=== PATIENT | female | born 1990 | race Hispanic/Latino ===

== ENCOUNTER 2017-03-15 22:51 | Emergency (ER) | payer OTHER ==
[~2017-03-15 22:51] MED LIST: METHERGINE0.2 M1 PO; PREDNISONE10 M2 PO; VENTOLIN HFA18 GM INH
--- NOTE | 2017-03-15 23:17 | ED GI/GU/ABDOMINAL COMPLAINT ---
History of Present Illness General Chief Complaint: Abdominal Pain/Flank Pain Stated Complaint: ABD PAIN Source: patient, old records Exam Limitations: no limitations Allergies Coded Allergies: shellfish derived (Severe, ANAPHYLAXIS 07/22/16) Triage Note: PER PT ABD PAIN X 2 DAYS HAD CHILLS ,LMP LAST WEEK ONLY WAS 3 DAYS USUSALLY IT IS A WEEK PAIN STABBING ABOUT EVERY 30 MINUTES. PAIN ALSO TO LOW BACK Triage Nurses Notes Reviewed? yes ? n Is pt currently ? No HPI: This si a 26 yo female with PMH asthmawho comes in with CC abdominal pain. Pt states that she has had the pain in for 3 days. The pain is a stabbing intermittent sensation predominatnly in upper quadrants but radiating to back. Pt also endorses a radiation to her buttocks with an almost numb feeling in her thighs. She has hx of medical in 2016 after which she c/o excessive vaginal bleeding no other previous GI symptoms. She does endorse etoh intake the day before symptoms started. Denies any drugs or exotic food ingestions. Her baseline bowel habits are around 3 times a week but today she had 2 episodes of stool which is unusual for pt. No change in urination. No BRBPR melena or hematuria. Pain has continued to get worse over the past three days. LMP was last week; but it only lasted 3 days instead of usual 5-7 day course. (BRIA JONES,ZAYRA) Vital Signs & Intake/Output Vital Signs & Intake/Output Vital Signs Date Time Temp Pulse Resp B/P B/P Pulse O2 O2 Flow FiO2 Mean Ox Delivery Rate 03/16 0006 Room Air 03/15 2256 98.5 64 20 108/79 96 Room Air ED Intake and Output 03/16 0000 03/15 1200 Intake Total Output Total Balance Patient 70.307 kg Weight Reconcile Medications Albuterol Sulfate (Ventolin Hfa) 18 GM HFA.AER.AD 2 PUF INH Q4-6 PRN PRN ASTHMA Methylergonovine Maleate (Methergine) 0.2 MG TABLET 0.2 MG PO TID PRN BLEEDING Omeprazole 10 MG CAPSULE. 1 CAP PO DAILY gastritis Prednisone 10 MG TABLET 1 TAB PO AD ASTHMA DAY1/DAY2 FOUR TABS DAY3/DAY4 THREE TABS DAY5/DAY6 TWO TABS DAY7 ONE TAB (GENA MCNAIR MD) Past History Travel History Traveled to [place] past 21 day No Medical History Any Pertinent Medical History? 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 No Sexual History Sexually Active Yes Use of Protection Yes Always (ZAYRA FRASER MD) Psychosocial History ETOH Use: occasional use Illicit Drug Use: denies illicit drug use (GENA MCNAIR MD) Review of Systems Review of Systems Constitutional: Denies: chills, fever, weakness, unexplained weight loss. EENTM: Reports: no symptoms. Respiratory: Reports: no symptoms. Cardiovascular: Reports: no symptoms. GI: Reports: see HPI. Genitourinary: Denies: discharge, dysuria, frequency, hematuria, hesitation, nocturia, pain, urgency. Musculoskeletal: Reports: gout. Skin: Reports: no symptoms. (ZAYRA FRASER MD) Review of Systems Neurological/Psychological: Reports: no symptoms. Hematologic/Endocrine: Reports: no symptoms. Immunologic/Allergic: Reports: no symptoms. All Other Systems: Reviewed and Negative (GENA MCNAIR MD) Physical Exam Physical Exam General Appearance: well developed/nourished, no apparent distress, alert, awake Head: atraumatic, normal appearance Eyes: Bilateral: normal appearance, PERRL, EOMI. Ears, Nose, Throat, Mouth: hearing grossly normal Neck: normal inspection, supple, full range of motion Respiratory: normal breath sounds, chest non-tender, no respiratory distress, quiet respiration, lungs clear Cardiovascular: regular rate/rhythm Gastrointestinal: normal bowel sounds, soft, tenderness to palpation in upper quadrants. No rebound or guarding Rectal: deferred Core Measures ACS in differential dx? No Severe Sepsis Present: No Septic Shock Present: No (ZAYRA FRASER MD) Physical Exam Extremities: normal range of motion Neurologic/Psych: no motor/sensory deficits, awake, alert, oriented x 3, normal gait, normal mood/affect Skin: intact, normal color, warm/dry (GENA MCNAIR MD) Progress Differential Diagnosis: biliary colic, ectopic , gastritis, intrauterine , kidney stone, pancreatitis, PUD/GERD Initial ED EKG: none Comments: 11:40 pm- have sent off for blood work and test. Pt given pain control and GI cocktail (BRIA JONES,ZAYRA) Plan of Care: Orders Procedure Date/time Status LIPASE 03/15 2326 Complete HUMAN BETA HCG SCREEN 03/15 2326 Complete CBC WITHOUT DIFFERENTIAL 03/15 2326 Complete BASIC ELECTROLYTES PLUS BUN&CR 03/15 2326 Complete AMYLASE 03/15 2326 Complete Current Medications Sig/Lidia Start time Last Medication Dose Stop Time Status Admin Ondansetron HCl 4 MG ONCE PRN 03/15 2330 AC (Zofran) Laboratory Tests 03/15/172355: Anion Gap 9, Estimated GFR > 60, BUN/Creatinine Ratio 23.3, Amylase 39, Lipase 52, Total Beta HCG NEGATIVE, CBC w Diff NO MAN DIFF REQ, RBC 4.67, MCV 79.8 L, MCH 25.8 L, RDW 17.0 H, MPV 9.0, Gran % 70.6, Lymphocytes % 15.2 L, Monocytes % 8.1, Eosinophils % 5.9 H, Basophils % 0.2, Absolute Granulocytes 6.3, Absolute Lymphocytes 1.4, Absolute Monocytes 0.7 H, Absolute Eosinophils 0.5, Absolute Basophils 0, PUBS MCHC 32.3 L Departure Departure Condition: Stable Referrals: UNKNOWN (PCP/Family) Departure Forms: Customer Survey General Discharge Information (BRIA JONES,ZAYRA) Departure Disposition: HOME OR SELF CARE Clinical Impression Primary Impression: Gastritis Qualifiers: Gastritis type: unspecified gastritis Chronicity: acute Gastritis bleeding: without bleeding Qualified Code: K29.00 - Acute gastritis without bleeding Additional Instructions: AVOID ALCOHOL TAKE MEDS PRESCRIBED RETURN FOR ANY CONCERNS Prescriptions: Current Visit Scripts Omeprazole 1 CAP PO DAILY #30 CAP Resident Co-Sign Statement Statement: ED Attending supervision documentation- [X] I saw and evaluated the patient. I have also reviewed all the pertinent lab results and diagnostic results. I agree with the findings and the plan of care as documented in the Resident's documentation. [X] I have reviewed the ED Record and agree with the Resident's documentation. [] Additions or exceptions (if any) to the Resident's note and plan are summarized below: [I have personally seen and examined this patient. I have read the above note and agree with what has been written. Patient was out drinking on Wednesday night and Wednesday morning woke up with a burning cramping sensation in her epigastric area. The pain has been constant since then. The pain occasionally radiates through to his back. There is slight nausea but no vomiting. There is no diarrhea. She rates the pain at 6 out of 10. There are no aggravating or mitigating factors. The pain is relieved with a GI cocktail. The laboratory data have been discussed with the patient. Questions have been answered. Patient is stable for discharge.] (TABBY JONES,GENA Rehman)
[2017-03-15] MEDS ORDERED: OMEPRAZOLE10 M1 PO (23:43)
[2017-03-16 00:18] LABS: ABSOLUTE BASOPHIL COUNT 0 /CUMM (0.0-0.2); ABSOLUTE EOSINOPHIL COUNT 0.5 /CUMM (0.0-0.7); ABSOLUTE GRANULOCYTE CT 6.3 /CUMM (1.4-6.5); ABSOLUTE LYMPH COUNT 1.4 /CUMM (1.2-3.4); ABSOLUTE MONOCYTE COUNT 0.7 /CUMM (0.10-0.60); BASOPHIL % 0.2 % (0.0-2.0); EOSINOPHIL % 5.9 % (0-5); GRANULOCYTE % 70.6 % (42.2-75.2); HEMATOCRIT 37.3 % (37-47); MEAN CORPUSCULAR HGB 25.8 PG (27.0-31.0); MEAN CORPUSCULAR HGB CONC 32.3 G/DL (33.0-37.0); MEAN CORPUSCULAR VOLUME 79.8 FL (81.0-99.0); PLATELET COUNT 259 /CUMM (130-400); RED BLOOD CELL CT 4.67 /CUMM (4.20-5.40)
[2017-03-16 00:58] VITALS: BP 112/80
== END 2017-03-16 00:59 ==
LOC: ERH 22:51
PROVIDERS: Student in an Organized Health Care Education/Training Program
DX: K29.70 Gastritis, unspecified, without bleeding (principal)
CPT/HCPCS: 82436; 96374; J0131